=== PATIENT | male | born 1955 | race Caucasian/White ===

== ENCOUNTER 2018-02-07 11:41 | Outpatient (CLI) | payer OTHER | END 2018-02-07 11:42 | disposition critical access hospital (66) | LOC: EMS 11:41 | PROVIDERS: ATTEND Surgery | DX: R06.02 Shortness of breath (principal); R42 Dizziness and giddiness | CPT/HCPCS: A0425; A0427 ==

== ENCOUNTER 2018-02-07 12:09 | Emergency (ER) | payer OTHER ==
[2018-02-07 12:21] VITALS: BP 166/89
[2018-02-07] MEDS ORDERED: CLOPIDOGREL 300 MG TABLET PO ONE (12:45)
[2018-02-07] MEDS ORDERED: HEPARIN 25000UNITS/500ML (D5W) 25,000 UNIT/500 ML BAG IV ONE (12:46)
[2018-02-07] MEDS ORDERED: HEPARIN 5,000 UNIT/ML VIAL ONE (12:46)
[2018-02-07] MEDS ORDERED: METOPROLOL TARTRATE 50 MG TABLET ONE (12:46)
--- NOTE | 2018-02-07 12:52 | ED Physician Documentation ---
PD HPI CHEST PAIN - Stated complaint Stated Complaint: DIZZINESS, NAUSEA - Chief complaint Chief Complaint: Resp - History obtained from History obtained from: Patient - History of Present Illness Timing - onset: Today Timing - onset during: Rest Timing - duration: Hours Timing - details: Gradual onset, Still present, Waxing and waning Quality: Pressure Location: Substernal Radiation: No: Jaw, Neck, Left upper extremity Improved by: Rest Associated symptoms: Shortness of air, Diaphoresis, Nausea, Cough Similar symptoms before: Has not had sx before Recently seen: Not recently seen - Additional information Additional information: 63-year-old previously well male began to have some issues with pollen allergies and sinus congestion 5 days ago he has been taking some decongestant and antihistamine and felt that he was having some trouble breathing. This morning he awoke in a sweat and had some substernal pressure he did not have pain he does not admit to pain. He denies radiation of symptoms into his jaw or neck or arm is come to the emergency department today diaphoretic and nauseous. Review of Systems Constitutional: reports: Fatigue, Sweats. denies: Fever Eyes: denies: Decreased vision Ears: denies: Ear pain Nose: reports: Rhinorrhea / runny nose, Congestion, Sinus pressure / pain Throat: reports: Sore throat Cardiac: reports: Chest pain / pressure. denies: Palpitations, Pedal edema, Calf pain Respiratory: reports: Dyspnea, Cough. denies: Wheezing GI: reports: Nausea. denies: Abdominal Pain, Vomiting : denies: Dysuria, Frequency Skin: denies: Rash Musculoskeletal: denies: Neck pain, Back pain, Extremity pain Neurologic: denies: Generalized weakness, Focal weakness PD ED PE NORMAL - Vitals Vital signs reviewed: Yes (hypertensive ) - General General: Alert and oriented X 3, Well developed/nourished, Other (anxious appearing diaphoretic male) - HEENT HEENT: Atraumatic, PERRL, EOMI, Other (cerumen in the left right is clear) - Neck Neck: Supple, no meningeal sign, No bony TTP - Cardiac Cardiac: RRR, No murmur - Respiratory Respiratory: No respiratory distress, Clear bilaterally - Abdomen Abdomen: Soft, Non tender - Back Back: No CVA TTP, No spinal TTP - Derm Derm: Normal color, Warm and dry, No rash - Neuro Neuro: Alert and oriented X 3, No motor deficit, No sensory deficit, Normal speech Eye Opening: Spontaneous Motor: Obeys Commands Verbal: Oriented GCS Score: 15 - Psych Psych: Normal mood, Normal affect Results - Vitals Vitals: Vital Signs - 24 hr 02/07/18 12:16 Temperature 36.5 C Heart Rate 61 Respiratory 18 Rate Blood Pressure 166/89 H O2 Saturation 95 Oxygen O2 Source Room air - EKG (time done) 1231 Rhythm: NSR Ischemia: ST elevation c/w ischemia, T wave inversion Compare to prior EKG: Old EKG unavailable Computer interpretation: Agree with computer PD MEDICAL DECISION MAKING - ED course Complexity details: reviewed results, re-evaluated patient, considered differential, d/w patient ED course: 63-year-old male awoke this morning with diaphoresis and difficulty breathing with a sensation of pressure in his chest and he is come to the emergency department this afternoon not feeling well. An electric cardiogram obtained shows 1.[address] elevation in V2,3 and 4 as well as T-wave inversion in 5 and [address] elevation in 3 and aVF. The emergency department physician at [facility] is consulted in the case Dr. Veronica Cuellar and she accepts the patient in transfer. The patient is administered aspirin prior to coming to the emergency department and he is administered here heparin and Plavix and transferred stat Departure - Departure Disposition: 02 Transfer Acute Care Hosp Clinical Impression: STEMI (ST elevation myocardial infarction) Qualifiers: Involved coronary artery: unspecified coronary artery Qualified Code(s): I21.3 - ST elevation (STEMI) myocardial infarction of unspecified site Condition: Serious
[2018-02-07 13:01] LABS: BASOPHILS # (AUTO) 0.1 10^3/uL (0.0-0.1); BASOPHILS % (AUTO) 0.8 %; EOSINOPHILS # (AUTO) 0.1 10^3/uL (0.0-0.7); EOSINOPHILS % (AUTO) 0.8 %; HGB - HEMOGLOBIN 15.4 g/dL (14.0-18.0); LYMPHOCYTES # (AUTO) 2.1 10^3/uL (1.5-3.5); LYMPHOCYTES % (AUTO) 25.2 %; MEAN CORPUSCULAR HGB CONC 35.1 g/dL (32.0-36.0); MEAN CORPUSCULAR VOLUME 91.1 fL (80.0-94.0); MONOCYTES # (AUTO) 0.9 10^3/uL (0.0-1.0); MONOCYTES % (AUTO) 10.6 %; NEUTROPHILS # (AUTO) 5.1 10^3/uL (1.5-6.6); NEUTROPHILS % (AUTO) 62.6 %; PLT - PLATELET COUNT 289 10^3/uL (130-450); RED BLOOD COUNT 4.82 10^6/uL (4.70-6.10); RED CELL DISTRIBUTION WIDTH 13.9 % (12.0-15.0); WHITE BLOOD COUNT 8.2 x10^3/uL (4.8-10.8)
--- NOTE | 2018-02-07 13:11 | XRAY Report ---
TWO-VIEW CHEST: 02/07/2018 CLINICAL INDICATION: Shortness of breath, weakness. FINDINGS: Frontal and lateral views of the chest demonstrate a normal cardiac silhouette. The lungs are clear. No effusion or pneumothorax is present. IMPRESSION: NORMAL CHEST. TD: 02/07/2018 13:10
[2018-02-07 13:17] LABS: ALBUMIN 4.8 g/dL (3.2-5.5); ALBUMIN/GLOBULIN RATIO 1.4 (1.0-2.2); CALCIUM 9.8 mg/dL (8.5-10.3); TOTAL PROTEIN 8.2 g/dL (6.7-8.2)
[2018-02-07] MEDS ORDERED: CLOPIDOGREL 300 MG TABLET PO STA (14:25)
[2018-02-07] MEDS ORDERED: HEPARIN 5,000 UNIT/ML VIAL IVP STA (14:25)
[2018-02-07] MEDS ORDERED: METOPROLOL TARTRATE 50 MG TABLET PO STA (14:25)
[2018-02-07] MEDS ORDERED: HEPARIN 25000UNITS/500ML (D5W) 25,000 UNIT/500 ML BAG IV STA (14:26)
== END 2018-02-07 12:57 | disposition short-term general hospital (02) ==
LOC: ED 12:09
DX: I21.3 ST elevation (STEMI) myocardial infarction of unspecified site (principal); R94.31 Abnormal electrocardiogram [ECG] [EKG]
CPT/HCPCS: 36415; 71046; 80053; 83690; 84484; 85025; 93005; 96374; 99283; 99284; A9270

== ENCOUNTER 2018-02-07 12:58 | Outpatient (CLI) | payer OTHER | END 2018-02-07 12:59 | disposition short-term general hospital (02) | LOC: EMS 12:58 | PROVIDERS: ATTEND Surgery | DX: R06.00 Dyspnea, unspecified (principal); R11.0 Nausea; R53.83 Other fatigue; R42 Dizziness and giddiness | CPT/HCPCS: A0425; A0427 ==

== ENCOUNTER 2018-11-09 19:56 | Emergency (ER) | payer OTHER ==
--- NOTE | 2018-11-09 23:39 | ED Physician Documentation ---
History of Present Illness - Stated complaint Stated Complaint: RT ARM/NECK PX;DROPPING ITEMS - Chief complaint Chief Complaint: Ext Problem - History obtained from History obtained from: Patient - History of Present Illness Timing: Other (2.5 months ago) Pain level now: 8 Improved by: rest Worsened by: movement - Additonal information Additional information: c/o 2-3 months of atraumatic right-sided neck pain that radiates down RUE with intermittent numbness to first three fingers of right hand (radial aspect). He says he has been evaluated twice at [place] and twice by PMD. He has been prescribed gabapentin and ibuprofen but has had no relief with these medications. He says no other medications have been prescribed. He says he last saw PMD 1 or 2 weeks ago and plan is to have MRI of his neck but he is waiting to hear from scheduling for this. Review of Systems Constitutional: denies: Fever Cardiac: denies: Chest pain / pressure Skin: denies: Rash Musculoskeletal: reports: Neck pain. denies: Back pain Neurologic: reports: Numbness. denies: Generalized weakness, Focal weakness PD PAST MEDICAL HISTORY - Past Medical History Past Medical History: Yes Cardiovascular: Hypertension Endocrine/Autoimmune: Type 2 diabetes GI: Ulcerative colitis - Past Surgical History Past Surgical History: Yes General: Appendectomy Ortho: Other - Present Medications Home Medications: Ambulatory Orders Medication Instructions Recorded Confirmed Cyclobenzaprine [Flexeril] 10 mg PO TID PRN #20 tablet 11/10/18 Hydrocodone/Acetaminophen 1 - 2 each PO Q6H PRN #14 tablet 11/10/18 [Hydrocodon-Acetaminophen 5-325] - Allergies Allergies/Adverse Reactions: Allergies Allergy/AdvReac Type Severity Reaction Status Date / Time No Known Drug Allergies Allergy Verified 11/09/18 20:47 - Social History Does the pt smoke?: No Smoking Status: Never smoker Does the pt drink ETOH?: No Does the pt have substance abuse?: No - Immunizations Immunizations are current?: Yes - POLST Patient has POLST: No PD ED PE NORMAL - Vitals Vital signs reviewed: Yes - General General: Alert and oriented X 3, No acute distress, Well developed/nourished - Neck Neck: Supple, no meningeal sign, No bony TTP - Back Back: No spinal TTP - Derm Derm: Normal color, Warm and dry, No rash - Extremities Extremities: Normal ROM s pain - Neuro Neuro: No motor deficit, No sensory deficit, Other (5/5 bilateral foxing closer strength, 5/5 right bicep/tricep (flexion/extension at elbow). LTS intact right hand/fingers.) Results - Vitals Vitals: Vital Signs - 24 hr 11/09/18 11/09/18 11/10/18 20:42 22:21 00:31 Temperature 36.0 C L Heart Rate 76 70 72 Respiratory 16 16 16 Rate Blood Pressure 157/85 H 148/64 H 140/64 H O2 Saturation 95 95 98 Oxygen O2 Source Room air PD MEDICAL DECISION MAKING - ED course Complexity details: considered differential, d/w patient ED course: atraumatic right neck pain radiating down RUE with subjective paresthesias/numbness in median nerve distribution, c/w cervical radiculopathy. Emergent testing not indicated at this time, will treat symptomatically. Patient intends to continue to pursue outpatient testing (MRI) and will return to ED if worse in any way. Departure - Departure Disposition: 01 Home, Self Care Clinical Impression: Cervical radiculopathy Condition: Good Instructions: ED Cervical Radiculopathy Follow-Up: Wilma Rosa MD [Primary Care Provider] - Prescriptions: Cyclobenzaprine [Flexeril] 10 mg PO TID PRN #20 tablet PRN Reason: Spasms Hydrocodone/Acetaminophen [Hydrocodon-Acetaminophen 5-325] 1 - 2 each PO Q6H PRN #14 tablet PRN Reason: pain Discharge Date/Time: 11/10/18 00:31
[2018-11-10] MEDS ORDERED: CYCLOBENZAPRINE 10 MG Prepack 2 PO PRN (00:20)
[2018-11-10] MEDS ORDERED: HYDROcod/ACET 5/325 Prepack 4 PO STA (00:20)
[2018-11-10] MEDS ORDERED: DEXAMETHASONE 10 MG/ML VIAL PO STA (00:20)
[2018-11-10 00:33] VITALS: BP 140/64
== END 2018-11-10 00:31 | disposition home or self-care (01) ==
LOC: ED 19:56
DX: M54.12 Radiculopathy, cervical region (principal); I10 Essential (primary) hypertension; E11.9 Type 2 diabetes mellitus without complications
CPT/HCPCS: 99283

== ENCOUNTER 2018-11-16 18:28 | Emergency (ER) | payer OTHER ==
--- NOTE | 2018-11-16 20:49 | ED Physician Documentation ---
PD HPI NECK PAIN - Stated complaint Stated Complaint: PAIN IN SHOULDER,NECK, RIGHT ARM - Chief complaint Chief Complaint: Ext Problem - History obtained from History obtained from: Patient - History of Present Illness Timing - onset: How many months ago (He has had pain in the right shoulder and scapular area for months. Here and elsewhere he said. He was seen recently at the [place] emergency department. He was trying to see his primary care but they have been busy and on had not gotten an appointment. Last appointment with them he says he was prescribed just muscle relaxants and anti-inflammatories.) Timing - details: Gradual onset, Still present, Waxing and waning Location: Lower, Right, Other (down to the right medial scapular area.) Quality: Pain, Spasm, Aching Associated symptoms: No: Fever, Weakness, Numbness Worsened by: Movement Contributing factors: No: Lifting, Twisting, Trauma Similar symptoms before: No diagnosis (scapular and shoulder muscle tenderness focally medial scapular area about level of T8-9. No rash nor sores.) Review of Systems Constitutional: denies: Fever, Chills, Myalgias Throat: denies: Sore throat Respiratory: denies: Dyspnea, Cough GI: denies: Abdominal Pain, Abdominal Swelling, Nausea, Vomiting Skin: denies: Rash, Lesions Musculoskeletal: reports: Back pain Neurologic: denies: Focal weakness, Numbness PD PAST MEDICAL HISTORY - Past Medical History Past Medical History: Yes Cardiovascular: Hypertension Endocrine/Autoimmune: Type 2 diabetes GI: Ulcerative colitis - Past Surgical History Past Surgical History: Yes General: Appendectomy Ortho: Other - Present Medications Home Medications: Ambulatory Orders Medication Instructions Recorded Confirmed Dexamethasone [Decadron] 4 mg PO DAILY #5 tablet 11/16/18 Methocarbamol [Robaxin] 500 mg PO Q6H PRN #30 tablet 11/16/18 Oxycodone HCl/Acetaminophen 1 each PO Q6H PRN #20 tablet 11/16/18 [Percocet 5-325 mg Tablet] - Allergies Allergies/Adverse Reactions: Allergies Allergy/AdvReac Type Severity Reaction Status Date / Time No Known Drug Allergies Allergy Verified 11/09/18 20:47 - Social History Does the pt smoke?: No Smoking Status: Never smoker Does the pt drink ETOH?: No Does the pt have substance abuse?: No Substance Use and Type: Marijuana - Immunizations Immunizations are current?: Yes - POLST Patient has POLST: No PD ED PE NORMAL - Vitals Vital signs reviewed: Yes - General General: Alert and oriented X 3, No acute distress, Well developed/nourished - HEENT HEENT: Pharynx benign - Neck Neck: Supple, no meningeal sign, No adenopathy - Cardiac Cardiac: RRR, No murmur - Respiratory Respiratory: Clear bilaterally - Abdomen Abdomen: Soft, Non tender - Back Back: No spinal TTP (there is tenderness in muscle at right medial scapular area. No rash nor redness. Right shoulder with full ROM but patient says the scapular area hurts with overhead reaching and pulling. ) - Derm Derm: Normal color, Warm and dry, No rash - Extremities Extremities: No tenderness to palpate, Normal ROM s pain - Neuro Neuro: Alert and oriented X 3, No motor deficit, Normal speech Results - Vitals Vitals: Vital Signs - 24 hr 11/16/18 11/16/18 18:35 21:48 Temperature 36.7 C 36.3 C L Heart Rate 100 74 Respiratory 18 16 Rate Blood Pressure 129/90 H 132/95 H O2 Saturation 96 96 Oxygen O2 Source Room air Procedures - General procedure General procedure: Muscle trigger point injection was done at a focal area of worse tenderness in the medial scapular area approximate level T the 8 or 9. It was right of midline and done with Kenalog and Marcaine. He states he tolerated well and he felt slightly better. PD MEDICAL DECISION MAKING - ED course Complexity details: re-evaluated patient (There are no findings or red flags to suggest a need for acute imaging. He has been having ongoing pain and had not been prescribed any stronger pain medicines by his primary care. I can give him this prescription short-term for pain worse than baseline and to follow up with his a primary care provider. I did advise him that he should not expect repeat prescriptions for pain medicines if his primary care is not continuing with that.), considered differential (He has had chronic thoracic pain and has been to his primary care. He is getting arranged for physical therapy. He had had a MRI of the area which showed just some mild disc disease. His primary care had prescribed him Tylenol with codeine previously which was not helpful. He is taking anti-inflammatory and muscle relaxant already. He states he was seen in the [place] emergency room recently and only prescribed ibuprofen. He says his shoulder and thoracic back are hurting more in the past several days to week or so.), d/w patient Departure - Departure Disposition: 01 Home, Self Care Clinical Impression: Thoracic back pain Qualifiers: Chronicity: acute Back pain laterality: right Qualified Code(s): M54.6 - Pain in thoracic spine Condition: Stable Record reviewed to determine appropriate education?: Yes Instructions: ED Neck Back Pain General Follow-Up: Wilma Rosa MD [Primary Care Provider] - Prescriptions: Dexamethasone [Decadron] 4 mg PO DAILY #5 tablet Methocarbamol [Robaxin] 500 mg PO Q6H PRN #30 tablet PRN Reason: Spasms Oxycodone HCl/Acetaminophen [Percocet 5-325 mg Tablet] 1 each PO Q6H PRN #20 tablet PRN Reason: pain Comments: Heat and gentle stretching of the shoulder and upper back muscles. Initiate physical therapy as planned. Use Decadron steroid anti-inflammatory daily for the next 5 days. Methocarbamol muscle relaxant as needed for stiffness and spasms. This may be most useful at night for sleep as well. Add Tylenol or Percocet if needed for pains. Follow-up with your primary care regarding ongoing treatment and pain management. Discharge Date/Time: 11/16/18 21:48
[2018-11-16] MEDS ORDERED: oxyCODONE 5 MG TABLET PO STA (21:15)
[2018-11-16] MEDS ORDERED: oxyCODONE/ACET 5/325 Prepack 4 PO STA (21:15)
[2018-11-16] MEDS ORDERED: METHOCARBAMOL 500 MG TABLET PO STA (21:15)
[2018-11-16] MEDS ORDERED: TRIAMCINOLONE 40 MG/ML VIAL IM STA (21:15)
[2018-11-16 21:48] VITALS: BP 132/95
== END 2018-11-16 21:48 | disposition home or self-care (01) ==
LOC: ED 18:28
DX: M54.6 Pain in thoracic spine (principal); G89.29 Other chronic pain; I10 Essential (primary) hypertension; E11.9 Type 2 diabetes mellitus without complications
CPT/HCPCS: 20552; 99283; A9270

== ENCOUNTER 2018-12-03 15:31 | Outpatient (CLI) | payer OTHER ==
--- NOTE | 2018-12-05 08:49 | MRI Report ---
Reason: NECK PAIN Procedure Date: 12/03/2018 Accession Number: [id number] / [id number] Procedure: MRI - Cervical Spine W/O CPT Code: FULL RESULT: EXAM: MRI CERVICAL SPINE WITHOUT CONTRAST EXAM DATE: 12/03/2018 04:47 PM. CLINICAL HISTORY: Neck pain. COMPARISONS: None. TECHNIQUE: Multiplanar, multisequence T1-weighted and fluid-sensitive sequences of the cervical spine without contrast. Other: None. FINDINGS: Neurologic Structures: The visualized posterior fossa structures are unremarkable. No signal abnormality in the visualized spinal cord. Alignment: Slight reversal of lordosis in the lower cervical spine. No spondylolisthesis. Bone Marrow: No gross fractures or bone lesions. No marrow edema. Interspace Levels/Facets: C1-C2: Unremarkable. C2-C3: Small central and right foraminal protrusion with right foraminal osteophyte and uncinate hypertrophy. Mild right facet arthropathy. Mild right foraminal stenosis. C3-C4: Small central protrusion and mild bilateral facet arthropathy. Mild right foraminal stenosis. C4-C5: Annular disk bulge with broad-based left paracentral disk protrusion. Mild central canal stenosis. Mild bilateral foraminal stenosis. C5-C6: Annular disk bulge with a broad-based central protrusion. Mild central canal stenosis. Right uncinate hypertrophy. Moderate right foraminal stenosis. C6-C7: Annular disk bulge and small uncinate hypertrophy. Mild facet arthropathy. Mild central canal stenosis. Moderate right foraminal stenosis. C7-T1: Minimal disk bulge and mild facet arthropathy. No significant stenosis. Musculature: Normal. No edema or fatty atrophy. Other: 2.1 cm high T2 signal nodule in the left lobe of the thyroid gland. IMPRESSION: 1. Cervical spondylosis. 2. Mild central canal stenosis at the C4-C5, C5-C6 and C6-C7 levels. Foraminal stenosis as described. 3. Left thyroid nodule incidentally noted. Would recommend ultrasound correlation. RADIA
== END 2018-12-03 15:32 | disposition home or self-care (01) ==
LOC: DI 15:31
PROVIDERS: ATTEND Internal Medicine
DX: M47.22 Other spondylosis with radiculopathy, cervical region (principal); M48.02 Spinal stenosis, cervical region; E04.1 Nontoxic single thyroid nodule
CPT/HCPCS: 72141

== ENCOUNTER 2018-12-03 16:46 | Emergency (ER) | payer MEDICARE, OTHER ==
--- NOTE | 2018-12-03 17:50 | ED Physician Documentation ---
PD HPI NECK PAIN - Stated complaint Stated Complaint: NECK/SHOULDER PX /L BIG TOE - Chief complaint Chief Complaint: Back Pain - History obtained from History obtained from: Patient - History of Present Illness Timing - onset: Chronic (has had neck and upper back pain for awhile and is awaiting surgical eval. Having worse pain over baseline without neuro symptoms nor new injury. jammed his big toe couple days ago and it is swollen/tender.) Timing - duration: Days Timing - details: Gradual onset Location: Upper, Right Quality: Pain, Spasm Associated symptoms: No: Fever, Weakness, Numbness Worsened by: Movement, Lifting, Palpation Contributing factors: Lifting, Twisting Similar symptoms before: Has not had sx before Review of Systems Constitutional: denies: Fever, Chills Nose: denies: Rhinorrhea / runny nose, Congestion Throat: denies: Sore throat Respiratory: denies: Cough GI: denies: Nausea, Vomiting, Diarrhea Skin: denies: Rash, Lesions PD PAST MEDICAL HISTORY - Past Medical History Cardiovascular: Hypertension Respiratory: None Endocrine/Autoimmune: Type 2 diabetes GI: Ulcerative colitis : None Psych: Depression, Anxiety, Post traumatic stress disorder Musculoskeletal: Osteoarthritis Derm: None - Past Surgical History Past Surgical History: Yes General: Appendectomy Ortho: Other - Present Medications Home Medications: Ambulatory Orders Medication Instructions Recorded Confirmed Oxycodone HCl/Acetaminophen 1 each PO Q6H PRN #20 tablet 11/16/18 [Percocet 5-325 mg Tablet] Atorvastatin [Lipitor] 0 mg PO DAILY 12/03/18 12/03/18 Azathioprine [Azasan] 75 mg PO DAILY 12/03/18 12/03/18 Insulin Aspart [NovoLOG] 5 unit SUBQ TIDWM 12/03/18 12/03/18 Insulin Glargine [Lantus Solostar] 0 unit 12/03/18 Lisinopril 10 mg PO DAILY 12/03/18 12/03/18 Methocarbamol [Robaxin] 500 mg PO Q6H PRN #30 tablet 12/03/18 Naproxen 375 mg PO BID #20 tablet 12/03/18 Omeprazole 10 mg PO DAILY 12/03/18 12/03/18 Oxycodone HCl/Acetaminophen 1 each PO Q6H PRN #20 tablet 12/03/18 [Percocet 5-325 mg Tablet] amLODIPine [Norvasc] 5 mg PO ONCE 12/03/18 12/03/18 traZODone [Desyrel] 50 mg PO HS 12/03/18 12/03/18 - Allergies Allergies/Adverse Reactions: Allergies Allergy/AdvReac Type Severity Reaction Status Date / Time No Known Drug Allergies Allergy Verified 12/03/18 16:55 - Social History Does the pt smoke?: No Smoking Status: Never smoker Does the pt drink ETOH?: No Does the pt have substance abuse?: No - Immunizations Immunizations are current?: Yes - POLST Patient has POLST: No PD ED PE NORMAL - Vitals Vital signs reviewed: Yes - General General: Alert and oriented X 3, No acute distress, Well developed/nourished - Back Back: No CVA TTP, No spinal TTP (but is tender right upper scapular area without redness nor rash. Focal muscle spasm felt. ) - Derm Derm: Normal color, Warm and dry, No rash - Extremities Extremities: No tenderness to palpate, Other (right great toe with some tenderness and swelling along dorsum; no abrasions. ) - Neuro Neuro: Alert and oriented X 3, No motor deficit, Normal speech Results - Vitals Vitals: Oxygen O2 Source Room air - Rads (name of study) great toe xray Radiology: Prelim report reviewed (no fractures. ), See rad report PD MEDICAL DECISION MAKING - ED course Complexity details: reviewed results (toe without fracture), considered differential, d/w patient Departure - Departure Disposition: 01 Home, Self Care Clinical Impression: Acute thoracic back pain Qualifiers: Back pain laterality: right Qualified Code(s): M54.6 - Pain in thoracic spine Toe sprain Qualifiers: Encounter type: initial encounter Qualified Code(s): S93.509A - Unspecified sprain of unspecified toe(s), initial encounter Condition: Stable Record reviewed to determine appropriate education?: Yes Instructions: ED Spasm Back No Trauma Follow-Up: Wilma Rosa MD [Primary Care Provider] - Prescriptions: Methocarbamol [Robaxin] 500 mg PO Q6H PRN #30 tablet PRN Reason: Spasms Naproxen 375 mg PO BID #20 tablet Oxycodone HCl/Acetaminophen [Percocet 5-325 mg Tablet] 1 each PO Q6H PRN #20 tablet PRN Reason: pain Comments: I do not see any fractures of your toe. There is some arthritis certainly in the toe and so this may have flared up with the injury. Activity as able with walking and such. For the thoracic back, use some anti-inflammatories such as naproxen twice daily with food. Add methocarbamol muscle relaxant for spasms and oxycodone as needed for pain. Follow-up with your primary care and initiate the physical therapy this coming week as planned. Discharge Date/Time: 12/03/18 19:05
[2018-12-03] MEDS ORDERED: TRIAMCINOLONE 40 MG/ML VIAL IM STA (18:23)
--- NOTE | 2018-12-03 18:59 | XRAY Report ---
Reason: injured big toe days ago Procedure Date: 12/03/2018 Accession Number: [id number] / [id number] Procedure: XR - Toe(s) LT CPT Code: FULL RESULT: EXAM: LEFT TOE RADIOGRAPHY EXAM DATE: 12/03/2018 06:48 PM. CLINICAL HISTORY: Left toe pain. COMPARISON: None. TECHNIQUE: 3 views. FINDINGS: Bones: Small avulsion fracture is suggested along the dorsum of the base of the distal phalanx of the great toe. There is minimal displacement. The remainder osseous structures are intact. Joints: Mild degenerative changes are seen in the MTP joints primarily. Soft Tissues: Normal. No soft tissue swelling. IMPRESSION: Minimally displaced avulsion fracture along the dorsum of the distal phalanx of the great toe. RADIA
[2018-12-03 19:06] VITALS: BP 129/79
== END 2018-12-03 19:05 | disposition home or self-care (01) ==
LOC: ED 16:46
DX: S93.509A Unspecified sprain of unspecified toe(s), initial encounter (principal); W23.0XXA Caught, crushed, jammed, or pinched between moving objects, initial encounter; I10 Essential (primary) hypertension; W23.1XXA Caught, crushed, jammed, or pinched between stationary objects, initial encounter
CPT/HCPCS: 73660; 99283

== ENCOUNTER 2018-12-09 09:20 | Outpatient (CLI) | payer OTHER ==
--- NOTE | 2018-12-09 15:55 | Ultrasound Report ---
Reason: NONTOXIC SINGLE THYROID NODULE Procedure Date: 12/09/2018 Accession Number: [id number] / [id number] Procedure: US - Head or Neck Soft Tissue CPT Code: FULL RESULT: EXAM: THYROID ULTRASOUND EXAM DATE: 12/09/2018 10:08 AM. CLINICAL HISTORY: Nontoxic single thyroid nodule. COMPARISON: CERVICAL SPINE W/O 12/03/2018 4:14 PM. TECHNIQUE: Real time sonographic imaging of the thyroid was performed by the dynamic balancer set up worker. Multiple dealer compliance representative static images were saved for review. FINDINGS: THYROID GLAND: Right Lobe: 5.2 x 2.1 x 2.2 cm, volume 12.7 cc. Normal background echotexture. Right Lobe Nodules: None. Left Lobe: 4.3 x 2.9 x 2.4 cm, volume 15.8 cc. Normal background echotexture. Left Lobe Nodules: 2.2 x 2.2 x 2.1 cm predominantly solid heterogeneous relatively hypoechoic nodule with internal vascularity and no definite calcifications. Isthmus: 0.3 cm AP. Isthmic Nodules: None. LYMPH NODES: Normal lymph nodes, no adenopathy demonstrated in the central or lateral compartment. OTHER: None. IMPRESSION: Recommend fine-needle aspiration of the 2.2 cm predominantly solid dominant left lobe of the thyroid nodule. Management recommendations are based on 2015 [place] [employer] Management Guidelines for Adult Patients with Thyroid Nodules and Differentiated Thyroid Cancer. RADIA
== END 2018-12-09 09:21 | disposition home or self-care (01) ==
LOC: DI 09:20
PROVIDERS: ATTEND Internal Medicine
DX: E04.1 Nontoxic single thyroid nodule (principal)
CPT/HCPCS: 76536

== ENCOUNTER 2018-12-17 16:18 | Emergency (ER) | payer MEDICARE ==
--- NOTE | 2018-12-17 16:38 | ED Physician Documentation ---
PD HPI ABD PAIN - Stated complaint Stated Complaint: ABD PX - Chief complaint Chief Complaint: Abd Pain - History obtained from History obtained from: Patient - History of Present Illness Timing - onset: Other (This is a 63-year-old gentleman with ulcerative colitis maintained on azathioprine. Also type 2 diabetes maintained on insulin who presents with 3 days of right upper quadrant pain. It is usually happening at night and worse after eating. He notes no nausea with it. No changes in his bowel movements which he describes is chronically soft and gelatinous. He has a history of appendectomy, no other abdominal surgeries.) Review of Systems Ten Systems: 10 systems reviewed and negative Constitutional: reports: Sweats. denies: Fever, Chills Cardiac: denies: Chest pain / pressure, Palpitations Respiratory: denies: Dyspnea, Cough GI: reports: Abdominal Pain. denies: Nausea, Vomiting, Hematemesis, Bloody / black stool : denies: Dysuria, Frequency PD PAST MEDICAL HISTORY - Past Medical History Cardiovascular: Hypertension Respiratory: None Endocrine/Autoimmune: Type 2 diabetes GI: Ulcerative colitis : None Psych: Depression, Anxiety, Post traumatic stress disorder Musculoskeletal: Osteoarthritis Derm: None - Past Surgical History Past Surgical History: Yes General: Appendectomy Ortho: Other - Present Medications Home Medications: Ambulatory Orders Medication Instructions Recorded Confirmed Atorvastatin [Lipitor] 0 mg PO DAILY 12/03/18 12/03/18 Azathioprine [Azasan] 75 mg PO DAILY 12/03/18 12/03/18 Insulin Aspart [NovoLOG] 5 unit SUBQ TIDWM 12/03/18 12/03/18 Insulin Glargine [Lantus Solostar] 0 unit 12/03/18 Lisinopril 10 mg PO DAILY 12/03/18 12/03/18 Naproxen 375 mg PO BID #20 tablet 12/03/18 Omeprazole 10 mg PO DAILY 12/03/18 12/03/18 amLODIPine [Norvasc] 5 mg PO ONCE 12/03/18 12/03/18 traZODone [Desyrel] 50 mg PO HS 12/03/18 12/03/18 Gabapentin 300 mg PO 12/17/18 12/17/18 Oxycodone HCl/Acetaminophen 1 - 2 each PO Q6H PRN #14 tablet 12/17/18 [Percocet 5-325 mg Tablet] predniSONE [Deltasone] 20 mg PO [id number] #21 tab 12/17/18 - Allergies Allergies/Adverse Reactions: Allergies Allergy/AdvReac Type Severity Reaction Status Date / Time No Known Drug Allergies Allergy Verified 12/17/18 16:24 - Social History Does the pt smoke?: No Smoking Status: Never smoker Does the pt drink ETOH?: No Does the pt have substance abuse?: No - Family History Family history: reports: Non contributory - Immunizations Immunizations are current?: Yes - POLST Patient has POLST: No PD ED PE NORMAL - Vitals Vital signs reviewed: Yes - General General: Alert and oriented X 3, No acute distress - HEENT HEENT: PERRL, EOMI - Neck Neck: Supple, no meningeal sign, No bony TTP - Cardiac Cardiac: RRR, No murmur - Respiratory Respiratory: No respiratory distress, Clear bilaterally - Abdomen Abdomen: Other (Soft, normal bowel tones, tender in the right upper quadrant with positive Bower sign.) - Back Back: No CVA TTP, No spinal TTP - Derm Derm: Normal color, Warm and dry - Extremities Extremities: No edema, No calf tenderness / cord - Neuro Neuro: Alert and oriented X 3, Normal speech - Psych Psych: Normal mood, Normal affect Results - Vitals Vitals: Vital Signs - 24 hr 12/17/18 12/17/18 16:22 19:43 Temperature 36.8 C 36.5 C Heart Rate 100 68 Respiratory 20 16 Rate Blood Pressure 165/97 H 141/90 H O2 Saturation 97 97 Oxygen O2 Source Room air - Labs Labs: Laboratory Tests 12/17/18 12/17/18 16:55 16:55 WBC 9.3 RBC 4.34 L Hgb 14.2 Hct 41.5 L MCV 95.5 H MCH 32.6 H MCHC 34.2 RDW 14.7 Plt Count 266 MPV 7.2 L Neut # (Auto) 6.1 Lymph # (Auto) 2.0 Fisher # (Auto) 1.0 Eos # (Auto) 0.1 Baso # (Auto) 0.1 Absolute Nucleated RBC 0.01 Nucleated RBC % 0.1 Sodium 135 Potassium 3.6 Chloride 101 Carbon Dioxide 25 Anion Gap 9.0 BUN 20 Creatinine 0.9 Estimated GFR (MDRD) 85 L Glucose 265 H Calcium 9.5 Total Bilirubin 0.4 AST 28 ALT 18 Alkaline Phosphatase 50 Total Protein 7.4 Albumin 4.3 Globulin 3.1 Albumin/Globulin Ratio 1.4 Lipase 47 - Rads (name of study) RUQ sono Radiology: EMP read contemporaneously (neg) CT A/P Radiology: EMP read contemporaneously (Right nephrolithiasis, 10 mm pancreatic cyst.) PD MEDICAL DECISION MAKING - ED course ED course: He declines pain medication on initial evaluation as he is driving. It seems like gallbladder, his ultrasound and liver enzymes are negative. This was followed with a CT with only apparent incidental findings, patient thinks he had a already been apprised of the pancreatic cyst. Residual diagnosis is ulcerative colitis flare although it is admittedly somewhat atypical for that but he did want to go ahead and trial a course of steroids. He understands he will need to fiddle with his insulin because glycemic control will become difficult. Departure - Departure Disposition: 01 Home, Self Care Clinical Impression: Abdominal pain Qualifiers: Abdominal location: right upper quadrant Qualified Code(s): R10.11 - Right upper quadrant pain Condition: Good Record reviewed to determine appropriate education?: Yes Instructions: Abdominal Pain Prescriptions: Oxycodone HCl/Acetaminophen [Percocet 5-325 mg Tablet] 1 - 2 each PO Q6H PRN #14 tablet PRN Reason: pain predniSONE [Deltasone] 20 mg PO [id number] #21 tab Comments: Return for new or worsening symptoms. Follow-up with your GI doctor, next available appointment. As discussed her blood sugar will go high on the steroids and he will need extra dosing or higher dosing of your insulin to keep up. Let your physician know that you have a 10 mm pancreatic cyst, the radiologist he recommended repeat CT or MRI in 6 months to confirm stability.
[2018-12-17 17:02] LABS: BASOPHILS # (AUTO) 0.1 10^3/uL (0.0-0.1); BASOPHILS % (AUTO) 0.8 %; EOSINOPHILS # (AUTO) 0.1 10^3/uL (0.0-0.7); EOSINOPHILS % (AUTO) 1.4 %; HGB - HEMOGLOBIN 14.2 g/dL (14.0-18.0); LYMPHOCYTES % (AUTO) 21.7 %; MEAN CORPUSCULAR HEMOGLOBIN 32.6 pg (27.0-31.0); MEAN CORPUSCULAR HGB CONC 34.2 g/dL (32.0-36.0); MEAN CORPUSCULAR VOLUME 95.5 fL (80.0-94.0); MEAN PLATELET VOLUME 7.2 fL (7.4-11.4); MONOCYTES % (AUTO) 10.4 %; NEUTROPHILS # (AUTO) 6.1 10^3/uL (1.5-6.6); NEUTROPHILS % (AUTO) 65.7 %; PLT - PLATELET COUNT 266 10^3/uL (130-450); RED BLOOD COUNT 4.34 10^6/uL (4.70-6.10); RED CELL DISTRIBUTION WIDTH 14.7 % (12.0-15.0); WHITE BLOOD COUNT 9.3 x10^3/uL (4.8-10.8)
[2018-12-17 17:15] LABS: ALBUMIN 4.3 g/dL (3.2-5.5); ALBUMIN/GLOBULIN RATIO 1.4 (1.0-2.2); BILIRUBIN,TOTAL 0.4 mg/dL (0.2-1.0); CALCIUM 9.5 mg/dL (8.5-10.3); CREATININE 0.9 mg/dL (0.6-1.2); TOTAL PROTEIN 7.4 g/dL (6.7-8.2)
--- NOTE | 2018-12-17 18:49 | Ultrasound Report ---
Reason: RUQ pain Procedure Date: 12/17/2018 Accession Number: [id number] / [id number] Procedure: US - Abdomen Limited CPT Code: FULL RESULT: EXAM: ABDOMEN ULTRASOUND LIMITED, RIGHT UPPER QUADRANT EXAM DATE: 12/17/2018 06:10 PM. CLINICAL HISTORY: Right upper quadrant pain. COMPARISON: None. TECHNIQUE: Real-time scanning was performed with static images obtained. FINDINGS: Liver: Diffusely hyperechoic echotexture. No focal liver lesions. 18.4 cm. Main portal vein flow: Hepatopetal. Gallbladder: No gallstones. Borderline gallbladder wall thickening to 3 mm. No pericholecystic fluid collections. Biliary System: CBD measures 6 mm. No intrahepatic or extrahepatic ductal dilatation. Other: No right hydronephrosis. The pancreas is largely obscured by bowel gas. IMPRESSION: 1. Fatty liver. 2. Borderline gallbladder wall thickening otherwise no evidence of cholelithiasis or acute cholecystitis. 3. No bile duct obstruction. RADIA
[2018-12-17] MEDS ORDERED: KETOROLAC 30 MG/ML VIAL IVP STA (18:59)
[2018-12-17] MEDS ORDERED: IOPAMIDOL-300 100 ML VIAL ONE (19:35)
[2018-12-17] MEDS ORDERED: IOPAMIDOL-300 100 ML VIAL IVP ONE (20:00)
--- NOTE | 2018-12-17 20:19 | CT Report ---
Reason: IV Liban poe abd pain Procedure Date: 12/17/2018 Accession Number: [id number] / [id number] Procedure: CT - Abdomen/Pelvis W CPT Code: FULL RESULT: EXAM: CT ABDOMEN AND PELVIS EXAM DATE: 12/17/2018 07:58 PM. CLINICAL HISTORY: Right abdominal pain. COMPARISONS: None. TECHNIQUE: Routine helical CT imaging was performed through the abdomen and pelvis. IV contrast: 100 ML ISOVUE 300. Enteric contrast: No. Reconstructions: Coronal and sagittal. In accordance with CT protocol optimization, one or more of the following dose reduction techniques were utilized for this exam: automated exposure control, adjustment of mA and/or KV based on patient size, or use of iterative reconstructive technique. FINDINGS: Lung Bases: Unremarkable. Liver: Normal. No masses. Gallbladder/Bile Ducts: Unremarkable. Spleen: Normal. Pancreas: No evidence of acute pancreatitis. There is a 10 mm cyst with peripheral calcification within the pancreatic body. No pancreatic duct dilatation. Adrenal Glands: There is an 18 mm right adrenal gland nodule demonstrating an attenuation value of 20 HU most likely representing a benign adenoma. Kidneys: A 2 mm calyceal stone is seen at the mid aspect of the right kidney. There are no obstructing renal calculi. A 4.4 cm cyst is noted at the upper pole of the left kidney. Peritoneal Cavity/Bowel: Normal. No free fluid, free air or adenopathy. No masses or acute inflammatory process. The appendix has been removed. Pelvic Organs: Normal. The bladder and visualized pelvic organs are within normal limits. Vasculature: No aneurysms or other significant abnormality. Bones: Left hip La pins present. Other: None. IMPRESSION: 1. Right nephrolithiasis. No obstructing urinary tract calculi. 2. No bowel obstruction, fluid collection or acute inflammatory process. 3. 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 Consider follow-up CT and/or MRI in 6-12 months to establish long-term stability. RADIA
[2018-12-17] MEDS ORDERED: oxyCODONE/ACET 5/325 Prepack 4 PO STA (20:26)
[2018-12-17] MEDS ORDERED: predniSONE 20 MG TABLET PO STA (20:26)
[2018-12-17 20:55] VITALS: BP 125/75
== END 2018-12-17 21:10 | disposition home or self-care (01) ==
LOC: ED 16:18
DX: R10.11 Right upper quadrant pain (principal); I10 Essential (primary) hypertension; E11.9 Type 2 diabetes mellitus without complications; Z79.4 Long term (current) use of insulin; K51.90 Ulcerative colitis, unspecified, without complications; N20.0 Calculus of kidney; K86.2 Cyst of pancreas
CPT/HCPCS: 36415; 74177; 76705; 80053; 83690; 85025; 96374; 99283; 99284; J7512; Q9967

== ENCOUNTER 2018-12-26 17:05 | Emergency (ER) | payer OTHER ==
[2018-12-26 17:13] VITALS: BP 194/92
== END 2018-12-26 17:14 | disposition left against medical advice (07) ==
LOC: ED 17:05
DX: Z76.0 Encounter for issue of repeat prescription (principal); Z53.21 Procedure and treatment not carried out due to patient leaving prior to being seen by health care provider

== ENCOUNTER 2019-04-20 08:19 | Outpatient (CLI) | payer OTHER ==
--- NOTE | 2019-04-20 15:20 | Ultrasound Report ---
Reason: LEFT CENTER ABDOMINAL PAIN Procedure Date: 04/20/2019 Accession Number: [id number] / [id number] Procedure: US - Abdomen Complete CPT Code: FULL RESULT: EXAM: ABDOMEN ULTRASOUND EXAM DATE: 04/20/2019 12:25 PM. CLINICAL HISTORY: Abdominal pain, history of fatty liver. 12/17/2018 ultrasound/CT, history of pancreatic cyst, right adrenal nodule, and renal stone. COMPARISON: None. TECHNIQUE: Real-time scanning was performed with static images obtained. FINDINGS: Liver: Increased echogenicity with coarse echotexture limiting evaluation for underlying masses, no masses seen. Liver subjectively enlarged and measures at least 19.4 cm. Main portal vein flow: Hepatopetal. Gallbladder: Normal. No stones, wall thickening, or sonographic Bower's sign. Biliary System: Common bile duct measures 7 mm. No intrahepatic or extrahepatic ductal dilatation. Pancreas: Limited visualization, no abnormality seen. Kidneys: Right: 13 cm longitudinally. Nonobstructing upper pole calculi x2 measuring up to 1.1 cm and up to 0.8 cm respectively. No hydronephrosis. Left: 12.7 cm longitudinally. Thinly septated, otherwise simple-appearing cyst measuring up to 4 cm. No hydronephrosis. Spleen: 13 cm. Top normal in size and echotexture. Aorta and Inferior Vena Cava: Limited visualization, unremarkable as seen. Other: Periumbilical area of pain was focally interrogated, no abnormality was detected. IMPRESSION: Echogenic liver which is often seen with steatosis, hepatosplenomegaly. Upper pole renal calculi. RADIA
== END 2019-04-20 08:20 | disposition home or self-care (01) ==
LOC: DI 08:19
PROVIDERS: ATTEND Internal Medicine
DX: R10.9 Unspecified abdominal pain (principal); K76.0 Fatty (change of) liver, not elsewhere classified; N20.0 Calculus of kidney
CPT/HCPCS: 76700

== ENCOUNTER 2019-05-20 15:37 | Emergency (ER) | payer MEDICARE, OTHER ==
--- NOTE | 2019-05-20 16:09 | ED Physician Documentation ---
PD HPI DYSPNEA - Stated complaint Stated Complaint: SWOLLEN FEET - Chief complaint Chief Complaint: General - History obtained from History obtained from: Patient - History of Present Illness Timing - onset: How many months ago (1) Timing - onset during: Light activity Timing - duration: Months (1) Timing - details: Gradual onset, Waxing and waning (has noted both legs edema for a month, some better with elevated overnight. Mild LAY.) Inciting event(s): No: URI, Immobilization/travel Associated symptoms: Bilateral edema. No: Fever, Cough, Wheezing, Chest pain / discomfort, Palpitations Similar symptoms before: Has not had sx before Recently seen: Not recently seen (tried to get appt with PCP but appt is after .) Review of Systems Constitutional: denies: Fever Nose: denies: Rhinorrhea / runny nose, Congestion Throat: denies: Sore throat Cardiac: reports: Pedal edema. denies: Chest pain / pressure, Palpitations, Calf pain Respiratory: reports: Dyspnea. denies: Cough, Wheezing GI: denies: Abdominal Pain, Nausea, Vomiting, Diarrhea, Bloody / black stool Neurologic: reports: Generalized weakness. denies: Focal weakness, Numbness, Altered mental status PD PAST MEDICAL HISTORY - Past Medical History Cardiovascular: Hypertension Respiratory: None Neuro: Peripheral neuropathy, Other Endocrine/Autoimmune: Type 2 diabetes GI: Ulcerative colitis : None HEENT: None Psych: Depression, Anxiety, Post traumatic stress disorder Musculoskeletal: Osteoarthritis Derm: None - Past Surgical History Past Surgical History: Yes General: Appendectomy Ortho: Other - Present Medications Home Medications: Ambulatory Orders Medication Instructions Recorded Confirmed Atorvastatin [Lipitor] 0 mg PO DAILY 12/03/18 12/03/18 Azathioprine [Azasan] 75 mg PO DAILY 12/03/18 12/03/18 Insulin Aspart [NovoLOG] 5 unit SUBQ TIDWM 12/03/18 12/03/18 Insulin Glargine [Lantus Solostar] 0 unit 12/03/18 Lisinopril 10 mg PO DAILY 12/03/18 12/03/18 Naproxen 375 mg PO BID #20 tablet 12/03/18 Omeprazole 10 mg PO DAILY 12/03/18 12/03/18 amLODIPine [Norvasc] 5 mg PO ONCE 12/03/18 12/03/18 traZODone [Desyrel] 50 mg PO HS 12/03/18 12/03/18 Gabapentin 300 mg PO 12/17/18 12/17/18 Oxycodone HCl/Acetaminophen 1 - 2 each PO Q6H PRN #14 tablet 12/17/18 [Percocet 5-325 mg Tablet] predniSONE [Deltasone] 20 mg PO [id number] #21 tab 12/17/18 hydroCHLOROthiazide 50 mg PO DAILY #10 tablet 05/20/19 [Hydrochlorothiazide] - Allergies Allergies/Adverse Reactions: Allergies Allergy/AdvReac Type Severity Reaction Status Date / Time No Known Drug Allergies Allergy Verified 05/20/19 15:50 - Social History Does the pt smoke?: No Smoking Status: Never smoker Does the pt drink ETOH?: No Does the pt have substance abuse?: No - Immunizations Immunizations are current?: Yes - POLST Patient has POLST: No PD ED PE NORMAL - Vitals Vital signs reviewed: Yes - General General: Alert and oriented X 3, Well developed/nourished - HEENT HEENT: Pharynx benign - Neck Neck: Supple, no meningeal sign, No adenopathy, No JVD - Cardiac Cardiac: RRR, No murmur - Respiratory Respiratory: Clear bilaterally - Abdomen Abdomen: Soft, Non tender - Back Back: No CVA TTP - Derm Derm: Normal color, Warm and dry - Extremities Extremities: No calf tenderness / cord, Other (both legs with mild to moderate pitting edema to the knees. Feet are swollen as well. ) - Neuro Neuro: Alert and oriented X 3, No motor deficit, Normal speech Results - Vitals Vitals: Oxygen O2 Source Room air - Labs Labs: Laboratory Tests 05/20/19 05/20/19 16:55 16:55 Sodium 141 Potassium 4.5 Chloride 103 Carbon Dioxide 26 Anion Gap 12.0 BUN 15 Creatinine 0.9 Estimated GFR (MDRD) 85 L Glucose 124 H Calcium 9.8 B-Natriuretic Peptide 106 H - Rads (name of study) duplex U/S Radiology: Prelim report reviewed (no DVT), See rad report PD MEDICAL DECISION MAKING - ED course Complexity details: considered differential (not renal failure nor heart failure, and no DVT. Presume dependent edema or some mild fluid overload. Wraps/elevate and could do short term diuretic. ), d/w patient Departure - Departure Disposition: 01 Home, Self Care Clinical Impression: Bilateral leg edema Condition: Stable Record reviewed to determine appropriate education?: Yes Instructions: ED Edema Legs Bilateral Follow-Up: MARIA E DIAZ MD [Primary Care Provider] - Prescriptions: hydroCHLOROthiazide [Hydrochlorothiazide] 50 mg PO DAILY #10 tablet Comments: Your kidney function is good and no signs of congestive heart failure. No blood clots. There could be some mild general fluid overload. Use low-salt diet. We could try mild diuretic daily for a week or so. The majority of the edema may be mostly from local effect within the legs. 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 See how much improvement you have over the next week or so. Discharge Date/Time: 05/20/19 19:12
[2019-05-20 17:08] LABS: CALCIUM 9.8 mg/dL (8.5-10.3); CREATININE 0.9 mg/dL (0.6-1.2)
--- NOTE | 2019-05-20 18:39 | Ultrasound Report ---
Reason: bilat leg edema; neck surgery end February Procedure Date: 05/20/2019 Accession Number: [id number] / [id number] Procedure: US - Duplex Ext Veins Bilateral CPT Code: FULL RESULT: EXAM: BILATERAL LOWER EXTREMITY VENOUS ULTRASOUND EXAM DATE: 05/20/2019 06:08 PM. CLINICAL HISTORY: Bilateral leg edema, neck surgery end of February. COMPARISON: None. TECHNIQUE: Real-time sonographic vascular imaging was performed by the clothing pattern preparer through the lower extremities utilizing both color-flow and Doppler spectral analysis. Multiple sales representative static images were saved for review. FINDINGS: Right: Common Femoral Vein (CFV): Normal. CFV-GSV Junction: Normal. Profunda Femoral Vein (PFV): Normal. Femoral Vein (FV) Prox: Normal. Femoral Vein (FV) Mid: Normal. Femoral Vein (FV) Dist: Normal. Limited visualization. Popliteal Vein: Normal. Left: Common Femoral Vein (CFV): Normal. CFV-GSV Junction: Normal. Profunda Femoral Vein (PFV): Normal. Femoral Vein (FV) Prox: Normal. Femoral Vein (FV) Mid: Normal. Femoral Vein (FV) Dist: Normal. Limited visualization. Popliteal Vein: Normal. Other: Veins not well seen due to patient's body habitus. Technically difficult exam due to increased swelling and tense legs. Bilateral posterior tibial and peroneal veins not imaged. Limited visualization of the bilateral distal superficial femoral veins. IMPRESSION: No evidence for deep venous thrombosis bilaterally. Limited visualization. See above. RADIA
[2019-05-20 18:55] VITALS: BP 127/74
[2019-05-20] MEDS ORDERED: hydroCHLOROthiazide 25 MG TABLET PO STA (18:58)
== END 2019-05-20 19:12 | disposition home or self-care (01) ==
LOC: ED 15:37
DX: I10 Essential (primary) hypertension (principal); E11.42 Type 2 diabetes mellitus with diabetic polyneuropathy; Z79.4 Long term (current) use of insulin; R60.0 Localized edema
CPT/HCPCS: 36415; 80048; 83880; 93970; 99283; 99284; A9270

== ENCOUNTER 2019-11-15 15:19 | Outpatient (CLI) | payer OTHER | END 2019-11-15 15:20 | disposition short-term general hospital (02) | LOC: EMS 15:19 | PROVIDERS: ATTEND Surgery | DX: R07.9 Chest pain, unspecified (principal); M54.2 Cervicalgia; R61 Generalized hyperhidrosis; R42 Dizziness and giddiness | CPT/HCPCS: A0425; A0427 ==

== ENCOUNTER 2020-05-15 11:47 | Outpatient (CLI) | payer OTHER ==
[2020-05-15 15:12] LABS: BASOPHILS # (AUTO) 0.1 10^3/uL (0.0-0.1); BASOPHILS % (AUTO) 0.8 %; EOSINOPHILS # (AUTO) 0.1 10^3/uL (0.0-0.7); HGB - HEMOGLOBIN 15.2 g/dL (14.0-18.0); LYMPHOCYTES # (AUTO) 1.9 10^3/uL (1.5-3.5); MEAN CORPUSCULAR HGB CONC 33.2 g/dL (32.0-36.0); MEAN CORPUSCULAR VOLUME 93.5 fL (80.0-94.0); MEAN PLATELET VOLUME 9.7 fL (7.4-11.4); MONOCYTES # (AUTO) 0.8 10^3/uL (0.0-1.0); MONOCYTES % (AUTO) 10.5 %; NEUTROPHILS # (AUTO) 4.3 10^3/uL (1.5-6.6); NEUTROPHILS % (AUTO) 60.1 %; PLT - PLATELET COUNT 268 10^3/uL (130-450); RED CELL DISTRIBUTION WIDTH 13.3 % (12.0-15.0); WHITE BLOOD COUNT 7.1 x10^3/uL (4.8-10.8)
[2020-05-15 15:33] LABS: ALBUMIN 4.6 g/dL (3.2-5.5); ALBUMIN/GLOBULIN RATIO 1.4 (1.0-2.2); BILIRUBIN,TOTAL 0.7 mg/dL (0.2-1.0); CALCIUM 9.6 mg/dL (8.5-10.3); TOTAL PROTEIN 7.9 g/dL (6.7-8.2)
== END 2020-05-15 11:48 | disposition home or self-care (01) ==
LOC: LAB.S 11:47
PROVIDERS: ATTEND Physician Assistant
DX: R60.0 Localized edema (principal); I10 Essential (primary) hypertension; I25.10 Atherosclerotic heart disease of native coronary artery without angina pectoris; R73.03 Prediabetes
CPT/HCPCS: 36415; 80053; 83880; 85025

== ENCOUNTER 2020-10-22 08:41 | Outpatient (CLI) | payer OTHER ==
[2020-10-22 15:56] LABS: BASOPHILS % (AUTO) 0.5 %; EOSINOPHILS % (AUTO) 0.5 %; HGB - HEMOGLOBIN 17.2 g/dL (14.0-18.0); LYMPHOCYTES # (AUTO) 1.7 10^3/uL (1.5-3.5); LYMPHOCYTES % (AUTO) 21.4 %; MEAN CORPUSCULAR HEMOGLOBIN 32.3 pg (27.0-31.0); MEAN CORPUSCULAR HGB CONC 33.7 g/dL (32.0-36.0); MEAN CORPUSCULAR VOLUME 95.9 fL (80.0-94.0); MEAN PLATELET VOLUME 9.3 fL (7.4-11.4); MONOCYTES # (AUTO) 0.8 10^3/uL (0.0-1.0); MONOCYTES % (AUTO) 10.2 %; NEUTROPHILS # (AUTO) 5.3 10^3/uL (1.5-6.6); NEUTROPHILS % (AUTO) 67.1 %; PLT - PLATELET COUNT 383 10^3/uL (130-450); RED BLOOD COUNT 5.33 10^6/uL (4.70-6.10); RED CELL DISTRIBUTION WIDTH 14.2 % (12.0-15.0); WHITE BLOOD COUNT 7.9 x10^3/uL (4.8-10.8)
[2020-10-22 16:32] LABS: ALBUMIN 5.1 g/dL (3.2-5.5); ALBUMIN/GLOBULIN RATIO 1.4 (1.0-2.2); ALKALINE PHOSPHATASE 56 IU/L (42-121); ALT ALANINE AMINOTRANSFERASE 19 IU/L (10-60); AST ASPARTATE AMINOTRANSFERASE 40 IU/L (10-42); BILIRUBIN,TOTAL 1.5 mg/dL (0.2-1.0); BUN - BLOOD UREA NITROGEN 20 mg/dL (6-20); CALCIUM 9.8 mg/dL (8.5-10.3); CARBON DIOXIDE - CO2 22 mmol/L (21-32); CHLORIDE 100 mmol/L (101-111); CHOL/HDL RATIO 3.2 (<5.0); CHOLESTEROL 142 mg/dL; CREATININE 1.1 mg/dL (0.6-1.2); GLUCOSE 123 mg/dL (70-100); HDL CHOLESTEROL 45 mg/dL; LDL CHOLESTEROL,CALCULATED 78 mg/dL; LDL/HDL RATIO 1.7 (<3.6); SODIUM 135 mmol/L (135-145); TOTAL PROTEIN 8.7 g/dL (6.7-8.2); VLDL CHOLESTEROL 19 mg/dL
[2020-10-22 16:53] LABS: CREATININE,URINE 314.8 mg/dL; MICROALBUM/CREATININE RATIO,UR 91.5 ug/mg (<30.0); MICROALBUMIN,URINE 28.8 mg/dL (0-300.0)
== END 2020-10-22 08:42 | disposition home or self-care (01) ==
LOC: LAB.S 08:41
PROVIDERS: ATTEND Physician Assistant
DX: I10 Essential (primary) hypertension (principal); I25.10 Atherosclerotic heart disease of native coronary artery without angina pectoris; E78.00 Pure hypercholesterolemia, unspecified; R73.09 Other abnormal glucose; Z12.5 Encounter for screening for malignant neoplasm of prostate
CPT/HCPCS: 36415; 80053; 80061; 82043; 82570; 83036; 83721; 84153; 85025

== ENCOUNTER 2021-03-18 17:55 | Outpatient (CLI) | payer MEDICARE, OTHER ==
--- NOTE | 2021-03-18 12:15 | XRAY Report ---
PROCEDURE: Hip w/Pelvis 1V RT INDICATIONS: R HIP PX TECHNIQUE: AP pelvis with lateral view(s) of the bilateral hip(s). COMPARISON: None. FINDINGS: Bones: No fractures or dislocations. Pelvic ring appears intact. No suspicious bony lesions. Old l eft femoral neck fracture with internal fixation. Soft tissues: The visualized bowel gas pattern is normal. No suspicious soft tissue calcifications. IMPRESSION: No acute osseous abnormality. If clinical suspicion for fracture persists, CT or MRI may be obtained for further evaluation. Reviewed by: Luis Hutchinson MD on 03/18/2021 12:14 PM PDT Approved by: Luis Hutchinson MD on 03/18/2021 12:14 PM PDT Station ID: [id number]
== END 2021-03-18 23:59 | disposition home or self-care (01) ==
LOC: DI.N 17:55
PROVIDERS: ATTEND Orthopaedic Surgery
DX: M25.551 Pain in right hip (principal)

== ENCOUNTER 2021-03-21 14:59 | Outpatient (CLI) | payer MEDICARE ==
--- NOTE | 2021-03-21 15:30 | XRAY Report ---
PROCEDURE: Foot 3 View LT INDICATIONS: PAIN IN FOREFOOT TECHNIQUE: 3 views of the foot were acquired. COMPARISON: None FINDINGS: Bones: No fractures or dislocations. There is moderate hallux valgus. Moderate first MTP joint and interphalangeal joint osteoarthritic changes are seen. No suspicious bony lesions. Soft tissues: No tibiotalar joint effusion. Achilles tendon appears normal. IMPRESSION: Moderate hallux valgus and moderate first MTP and interphalangeal joint osteoarthritis. No fracture o r dislocation. Reviewed by: Errol Cespedes MD on 03/21/2021 3:29 PM PDT Approved by: Errol Cespedes MD on 03/21/2021 3:29 PM PDT Station ID: [id number]
== END 2021-03-21 15:00 | disposition home or self-care (01) ==
LOC: DI 14:59
PROVIDERS: ATTEND Podiatrist
DX: M20.12 Hallux valgus (acquired), left foot (principal); M19.072 Primary osteoarthritis, left ankle and foot

== ENCOUNTER 2021-05-20 21:47 | Outpatient (CLI) | payer MEDICARE | END 2021-05-20 21:48 | disposition EMS.NT | LOC: EMS 21:47 | DX: R25.1 Tremor, unspecified (principal); R61 Generalized hyperhidrosis; R41.82 Altered mental status, unspecified ==

== ENCOUNTER 2021-06-18 08:00 | Outpatient (CLI) | payer MEDICARE, OTHER ==
--- NOTE | 2021-06-18 16:36 | XRAY Report ---
PROCEDURE: Wrist 4 View RT INDICATIONS: RIGHT WRIST PAIN TECHNIQUE: 4 views of the wrist were acquired. COMPARISON: None FINDINGS: Bones: No fractures or dislocations. No suspicious bony lesions. Scaphoid view: No visualized scaphoid fracture. Soft tissues: No suspicious soft tissue calcifications. IMPRESSION: No visualized acute fracture or dislocation. However, occult injury cannot be excluded. Recommend mirna rt interval imaging follow-up in 7-10 days as clinically indicated for additional evaluation. Reviewed by: Yenny Monge MD on 06/18/2021 4:35 PM PDT Approved by: Yenny Monge MD on 06/18/2021 4:35 PM PDT Station ID: [id number]
--- NOTE | 2021-06-18 16:36 | XRAY Report ---
PROCEDURE: Toe(s) RT INDICATIONS: PAIN IN RIGHT GREAT TOE TECHNIQUE: 3 views of the first toe(s) acquired. COMPARISON: None FINDINGS: Bones: No fractures or dislocations. No suspicious bony lesions. Soft tissues: No suspicious soft tissue densities. IMPRESSION: No visualized acute fracture or dislocation. However, occult injury cannot be excluded. Recommend mirna rt interval imaging follow-up in 7-10 days as clinically indicated for additional evaluation. Reviewed by: Yenny Monge MD on 06/18/2021 4:35 PM PDT Approved by: Yenny Monge MD on 06/18/2021 4:35 PM PDT Station ID: [id number]
== END 2021-06-18 23:59 | disposition home or self-care (01) ==
LOC: DI.S 08:00
PROVIDERS: ATTEND Physician Assistant Medical
DX: M79.674 Pain in right toe(s) (principal); M25.531 Pain in right wrist

== ENCOUNTER 2021-08-31 08:00 | Outpatient (CLI) | payer MEDICARE, OTHER ==
--- NOTE | 2021-08-31 16:59 | XRAY Report ---
PROCEDURE: Clavicle RT INDICATIONS: CONTUSION OF RIGHT SHOULDER TECHNIQUE: 2 views of the clavicle were acquired. COMPARISON: Correlation is made with the accompanying wrist radiographs, 08/31/2021. Correlation is also made with the prior chest radiograph, 02/07/2018 FINDINGS: Bones: There is a chronic appearing fracture of the right mid clavicle. No citlaly acute fractures or dislocations. No suspicious bony lesions. Age-appropriate degenerative changes are seen. Soft tissues: No suspicious soft tissue calcifications. IMPRESSION: Chronic appearing fracture of the right mid clavicle, without an acute abnormality seen on these plai n films. Reviewed by: Henri Prather MD on 08/31/2021 3:58 PM [facility] Approved by: Henri Prather MD on 08/31/2021 3:58 PM [facility] Station ID: [id number]
--- NOTE | 2021-08-31 17:00 | XRAY Report ---
PROCEDURE: Wrist 3 View RT INDICATIONS: SPRAIN OF RIGHT WRIST TECHNIQUE: 3 views of the wrist were acquired. COMPARISON: Wrist plain films, 06/18/2021 Correlation is made with the accompanying clavicle plain fi lms, 08/23/2021. FINDINGS: Bones: No fractures or dislocations. No suspicious bony lesions. Age-appropriate degenerative brewster ges are seen. Soft tissues: No suspicious soft tissue calcifications. IMPRESSION: Degenerative changes, without acute plain film abnormality seen. If it would be helpful for clinical management decision making, please consider a dedicated, schedule d wrist MRI for further evaluation (assuming that there is no contraindication). This should be perf ormed according to the arthrogram protocol, if there is strong clinical concern for a ligamentous abn ormality. Reviewed by: Henri Prather MD on 08/31/2021 3:59 PM [facility] Approved by: Henri Prather MD on 08/31/2021 3:59 PM [facility] Station ID: [id number]
== END 2021-08-31 23:59 | disposition home or self-care (01) ==
LOC: DI.S 08:00
PROVIDERS: ATTEND Emergency Medicine
DX: S42.021A Displaced fracture of shaft of right clavicle, initial encounter for closed fracture (principal); M19.011 Primary osteoarthritis, right shoulder; M19.031 Primary osteoarthritis, right wrist

== ENCOUNTER 2023-08-25 10:10 | Outpatient (CLI) | payer MEDICARE ==
--- NOTE | 2023-08-25 14:53 | XRAY Report ---
PROCEDURE: Foot 3 View RT INDICATIONS: RIGHT FOOT PAIN TECHNIQUE: 3 views of the foot were acquired. COMPARISON: None. FINDINGS: Bones: No fractures or dislocations. No suspicious bony lesions. There is likely hallux primus valg us deformity. Mild degenerative changes present at the first MTP joint. Soft tissues: No suspicious soft tissue calcifications or masses. IMPRESSION: No acute bony abnormality. If pain persists with conservative management, consider repeat radiographs in 10-14 days or cross-sectional imaging. Reviewed by: Sunitha Luna MD on 08/25/2023 2:52 PM PST Approved by: Sunitha Luna MD on 08/25/2023 2:52 PM [facility] Station ID: [id number]
== END 2023-08-25 10:11 | disposition home or self-care (01) ==
LOC: DI.N 10:10
PROVIDERS: ATTEND Family Medicine
DX: M19.071 Primary osteoarthritis, right ankle and foot (principal)